=== PATIENT | female | born 1955 ===

== ENCOUNTER 2023-08-22 06:34 | Day surgery (SDC) | payer OTHER ==
[~2023-08-22 06:34] MED LIST: ACID REDUCER20 M1; FERRETTS325 MG PO; GLUMETZA500 MG; LASIX20 MG; MEGESTROL ACETA40 MG PO; ZESTRIL2.5 MG
== END 2023-08-22 16:30 | disposition home or self-care (01) ==
LOC: CIR.AMB 06:34
PROVIDERS: ATTEND Obstetrics & Gynecology
DX: C54.1 Malignant neoplasm of endometrium (principal); N84.0 Polyp of corpus uteri; N95.0 Postmenopausal bleeding; Z91.013 Allergy to seafood; Z20.822 Contact with and (suspected) exposure to COVID-19; I10 Essential (primary) hypertension; Z30.430 Encounter for insertion of intrauterine contraceptive device; E11.9 Type 2 diabetes mellitus without complications